=== PATIENT | male | born 1985 | race Caucasian/White ===

== ENCOUNTER 2021-02-01 09:12 | Outpatient (REF) | payer OTHER, SELFPAY ==
[2021-02-01 10:13] LABS: COVID-19 Test Positive (Negative); IDNOW Serial# 16C4AD1C
== END 2021-02-01 09:13 | disposition home or self-care (01) ==
LOC: HO.LAB 09:12
PROVIDERS: Visit Provider Internal Medicine
DX: Z20.822 Contact with and (suspected) exposure to COVID-19 (principal)
CPT/HCPCS: 36415; 87635; C9803

== ENCOUNTER 2021-02-17 10:24 | Outpatient (REF) | payer OTHER, SELFPAY ==
[2021-02-17 12:29] LABS: Binax Now Covid-19 Ag Negative (Negative)
[2021-02-17 12:30] LABS: Binax Internal Control QC Valid
== END 2021-02-17 10:25 | disposition home or self-care (01) ==
LOC: HO.LAB 10:24
PROVIDERS: Visit Provider Internal Medicine
DX: Z20.822 Contact with and (suspected) exposure to COVID-19 (principal)
CPT/HCPCS: 36415; C9803